=== PATIENT | female | born 1970 | race Caucasian/White ===

== ENCOUNTER 2016-11-21 17:11 | Emergency (ER) | payer BC ==
[~2016-11-21] VITALS: Ht 152.4 cm; Wt 65.7 kg
[~2016-11-21 17:11] MED LIST: AMOXICILLIN500 M1 PO; CARBAMAZEPINE200 MG PO; CLEOCIN300 MG PO; CYMBALTA30 MG PO; DETROL LA2 MG PO; ERYTHROMYC1 APPLICAT BOTH EYES; FLONASE16 G1 BOTH NARES; MOTRIN600 MG PO; NAPROSYN500 MG PO; NAPROXEN500 MG PO; NORCO 5/3251 TABLET PO; PHENERGAN-CODE120 ML PO; TYLENOL WITH C1 EACH PO; ULTRAM50 MG PO; VALTREX1000 MG PO; VIBRAMYCIN100 MG PO; ZITHROMAX Z-PA250 MG PO; ZITHROMAX250 MG PO; ZOFRAN4 MG PO; ZOLOFT100 MG PO
[2016-11-21 19:14] LABS: EOSINOPHIL (%) 0.5 % (0-5); HEMATOCRIT 41.4 % (36.0-46.0); IMMATURE GRANULOCYTE (%) 0.3 % (0.0-0.7); IMMATURE GRANULOCYTE COUNT 0.2 K/uL; LYMPHOCYTE COUNT 1.6 K/uL (1.0-2.8); MCH 30.6 PG (29.0-34.0); MCHC 34.3 G/DL (30.0-36.0); MCV 89.2 FL (83-99); MEAN PLAT.VOLUME 8.4 uM^3 (9.5-12.4); MONOCYTE (%) 6.2 % (3-12); MONOCYTE COUNT 0.5 K/uL (0-0.8); NEUTROPHIL (%) 71.9 % (45-76); NEUTROPHIL COUNT 5.4 K/uL (1.8-6.4); PLATELET COUNT 452 K/uL (156-360); RBC DIS.WIDTH-CV 12.1 % (11.8-14.6); RBC DIS.WIDTH-SD 38.8 % (39-53); RED BLOOD COUNT 4.64 M/uL (3.80-5.20); WHITE BLOOD COUNT 7.5 K/uL (4.1-10.2)
[2016-11-21 19:22] LABS: CHLORIDE 104 mEq/L (99-109); POTASSIUM 3.8 mEq/L (3.7-5.4); SODIUM 137 mEq/L (136-147)
[2016-11-21 19:24] LABS: GLUCOSE 163 mg/dL (70-99)
[2016-11-21 19:25] LABS: ANION GAP 9 MEQ/L (2-14)
[2016-11-21 19:28] LABS: GFR ESTIMATE (CALCULATED) > 59 mL/min/
[2016-11-21 19:29] LABS: UREA NITROGEN (BUN) 22 mg/dL (9-23)
[2016-11-21 19:37] LABS: QUANTITATIVE HCG < 4.0 MIU/ML
[2016-11-21 21:25] VITALS: BP 152/102
== END 2016-11-21 21:15 | disposition home or self-care (01) ==
LOC: EME 17:11
PROVIDERS: Emergency Medicine
DX: G43.109 Migraine with aura, not intractable, without status migrainosus (principal); I10 Essential (primary) hypertension; Z86.69 Personal history of other diseases of the nervous system and sense organs; Z88.1 Allergy status to other antibiotic agents
CPT/HCPCS: 70450; 80048; 80156; 84702; 85025; 93005; 99281; 99285; J2765; J7030